=== PATIENT | female | born 1950 | race Caucasian/White ===

== ENCOUNTER 2024-11-10 14:40 | Emergency (ER) | payer OTHER ==
[~2024-11-10] VITALS: Ht 160 cm; Wt 68.2 kg
[~2024-11-10 14:40] MED LIST: NO MEDS
[2024-11-10 14:53] VITALS: BP 131/66; PULSE 68; RESP 18; TEMP 98.4; O2SAT 98
[2024-11-10] MEDS: IBUPROFEN 200 MG TABLET PO ONE (16:38)
[2024-11-10] MEDS: ACETAMINOPHEN 500 MG TABLET PO ONE (16:38)
[2024-11-10] MEDS ORDERED: ACET-2080 PO (19:14)
== END 2024-11-10 19:49 | disposition home or self-care (01) ==
LOC: EMS 14:40
DX: S20.219A Contusion of unspecified front wall of thorax, initial encounter (principal); S40.811A Abrasion of right upper arm, initial encounter; Z98.890 Other specified postprocedural states; W01.0XXA Fall on same level from slipping, tripping and stumbling without subsequent striking against object, initial encounter; Y93.89 Activity, other specified; Y92.89 Other specified places as the place of occurrence of the external cause; Y99.9 Unspecified external cause status
CPT/HCPCS: 71101; 99283